=== PATIENT | female | born 1970 | race Caucasian/White ===

== ENCOUNTER 2024-09-05 09:41 | Outpatient (CLI) | payer BC | END 2024-09-05 09:42 | disposition home or self-care (01) | LOC: CSHMAMMO 09:41 | PROVIDERS: ATTEND Obstetrics & Gynecology | DX: Z12.31 Encounter for screening mammogram for malignant neoplasm of breast (principal); M85.88 Other specified disorders of bone density and structure, other site; Z78.0 Asymptomatic menopausal state; Z80.3 Family history of malignant neoplasm of breast | CPT/HCPCS: 77063; 77067; 77080 ==